=== PATIENT | male | born 1995 | race Asian ===

== ENCOUNTER 2024-12-08 14:36 | Outpatient (AMB) | payer OTHER, SELFPAY ==
--- NOTE | 2024-12-08 15:10 | PD.RESCLINIC ---
Allergies/Meds Allergies & Medications Allergies No Known Allergies Allergy (Verified 12/08/24 15:13) Confirmation of home meds: Pt. unable to confirm MA Intake Visit Data Collection New Patient or Established: New Patient (never been to [facility]) Seen by Clinical Staff ONLY (RN/JUAN): No Pain Present Currently: No Pain scale:: 0 Pain Scale Used: [employer] Required: No PCP or OBGYN visit in last 3 months: No Hx Now: No Do You Feel Safe at Home: Yes Authorities Contacted: N/A Smoking Status Smoking Status: Never smoker For Televisit only Telemed Video/Phone Visit: Yes Verbal consent obtained for Telemed visit?: Yes Verbal Consent witness name: ANNA BARGER Telemed Video/Phone visit w/Clinical Staff: 21-30 min Immunization / Flu Flu Vaccine in the Last 12 Months: No Flu Vaccine Exclusion Criteria: No Exclusion Criteria Past Medical History Family History FAMILY HISTORY: Positive Family Neurologic Problems (stroke in father) Social History SMOKING STATUS: Smoking status: Never smoker ALCOHOL: Alcohol Intake: Never HOUSING: Housing: House [facility] Social History Living Situation History Marital Status: Single Lives With: Friend(s) Housing: House Tobacco History Smoking Status: Never smoker Alcohol History Alcohol Intake: Never Substance Use History Substance Use: none Domestic Abuse History Do You Feel Safe at Home: Yes Review of Systems Report any current symptoms Only answer those that you have currently: Past Medical History Past Medical History Have you ever been diagnosed with any of the following: History of Present Illness HPI Narrative Had telehealth visit for routine annual health checkup. Patient does not have any significant complaints other than mild fatigue. Stated that he did not see a doctor in the last 5 years. Other than occasional mild fevers, patient did not have any significant illness in the last few years. Had family history of stroke in his father at the age of 45 and rheumatoid arthritis in his aunt. Review of Systems Review of Systems Narrative Review of Systems: Constitutional: No Weight Change, No Fever, No Chills, No Night Sweats, Mild Fatigue, Malaise ENT/Mouth: No Hearing Changes, No Ear Pain, No Nasal Congestion, No Sinus Pain, No Hoarseness, No sore throat, No Rhinorrhea, No Swallowing Difficulty Eyes: No Eye Pain, No Swelling, No Redness, No Foreign Body, No Discharge, No Vision Changes Cardiovascular: No Chest Pain, No SOB, No PND, No Dyspnea on Exertion, No Orthopnea, No Edema, No Palpitations Respiratory: No Cough, No Sputum, No Wheezing, No Dyspnea Gastrointestinal: No Nausea, No Vomiting, No Diarrhea, No Constipation, No Pain, No Heartburn, No Anorexia, No Dysphagia, No Hematochezia, No Melena, No Flatulence, No Jaundice Genitourinary: No Dysuria, No Urinary Frequency, No Hematuria, No Urinary Incontinence, No Urgency, No Flank Pain, No Urinary Flow Changes, No Hesitancy Musculoskeletal: No Arthralgias, No Myalgias, No Joint Swelling, No Joint Stiffness, No Back Pain, No Neck Pain, No Injury History Skin: No Skin Lesions, No Pruritis Neuro: No Weakness, No Numbness, No Paresthesias, No Loss of Consciousness, No Syncope, No Dizziness, No Headache, No Coordination Changes, No Recent Falls Assessment & Plan Diagnosis / Problem List (1) Fatigue: (2) Annual physical exam: Status: Acute Assessment & Plan: Per patient, did not have any health visit in the last 5 years Complaint of occasional mild fatigue, other than that no complaints Plan: -Recommended regular physical exercise -Ordered labs including CBC, CMP, lipid panel, vitamin B12, vitamin D, HbA1c, iron panel, ferritin, testosterone Orders: Orders CBC 12/08/24 Vitamin D 25 Hydroxy Total 12/08/24 Lipid Panel 12/08/24 Vitamin B12 12/08/24 Urinalysis, C/S if Indicated 12/08/24 Ambulatory Hemoglobin A1C 12/08/24 Comprehensive Metabolic Panel 12/08/24 Thyroid Stimulating Hormone 12/08/24 Iron Panel 12/08/24 Ferritin 12/08/24 Testosterone,Tot (Adult Male)* 12/08/24 Additional Assessment Internal Medicine Attending Note: Case discussed with and agree with note and management plan of Resident Physician as per Resident's Note above. Issues of concern for present visit are as follows: Initial visit completed via telehealth. No significant past medical history. Notes some mild fatigue. Family history of CVA in father age 45, aunt with rheumatoid arthritis. Unable to complete physical exam as telehealth visit. We will order baseline labs. Mao Randolph MD Physician Billing New Patient New Patient: E/M Level 2-CPT 93896 Office Procedures [facility] Level of Care Nursing/Assessment Patient Status: Initial/New Patient Nursing Assessment/Reassessment: Medication Reconciliation and Update PMH in EMR Coordination of Care: Complex Care and Chronic Disease 1-5, Consent,records obtained, informed consent, Education Simp Pt/Fam, Lab and Imaging orders and Staff clarify orders New Patient Charge New Patient Point Assignment: 1084 Telehealth Telemed Phone/Video with patient at home & Dr,PA,JOURNEYMAN GLAZIER: Yes
== END 2024-12-08 15:12 | disposition home or self-care (01) ==
LOC: HODAHC 14:36
PROVIDERS: Supervising Provider Internal Medicine
DX: R53.83 Other fatigue (principal); Z82.3 Family history of stroke; Z82.61 Family history of arthritis
CPT/HCPCS: 99203; 99212; G0463

== ENCOUNTER → 2024-12-13 | Outpatient (CLI) | payer OTHER, SELFPAY ==
[2024-12-13 09:10] LABS: Collection Type, Urine Clean Catch
[2024-12-13 09:31] LABS: Basophils % (Auto) 0 % (0-2.5); Eosinophils # (Auto) 0.3 Thou/mm3 (0.0-0.5); Eosinophils % (Auto) 3 % (0-10); Hematocrit 46.2 % (41.0-53.0); Hemoglobin 15.5 g/dL (13.5-16.0); Immature Granulocytes % (Auto) 1 % (0-0); Immature Granulocytes Auto 0.05 Thou/mm3 (0.00-0.00); Lymphocytes # (Auto) 1.1 Thou/mm3 (1.0-4.8); Lymphocytes % (Auto) 11 % (10-50); Mean Corpuscular HGB Conc 33.5 g/dl (31.0-37.0); Mean Corpuscular Hemoglobin 28.4 pg (25.0-35.0); Mean Corpuscular Volume 85 fL (80-100); Monocytes # (Auto) 0.6 Thou/mm3 (0.0-0.8); Monocytes % (Auto) 6 % (0-12); Neutrophils # (Auto) 8.3 Thou/mm3 (1.8-7.7); Neutrophils % (Auto) 80 % (37-80); Nucleated Red Blood Cell % 0 /100 WBC (0); Platelet Count 290 Thou/mm3 (140-440); RDW Standard Deviation 38.2 fL (35.1-43.9); Red Blood Count 5.46 Miln/mm3 (4.50-5.90); White Blood Count 10.4 Thou/mm3 (3.8-10.6)
[2024-12-13 09:44] LABS: Glucose Estimated Average 100 mg/dL (80-131); Hemoglobin A1C 5.1 % Hgb (4.8-6.0)
[2024-12-13 09:56] LABS: Alanine Aminotransferase 35 U/L (10-49); Albumin, Serum 4.7 gm/dL (3.5-5.0); Albumin/Globulin Ratio 1.5 (1.2-2.2); Alkaline Phosphatase 70 U/L (46-116); Anion Gap 6 (7-16); Aspartate Amino Transferase 33 U/L (0-34); BUN/Creatinine Ratio 12 Ratio (12-20); Bilirubin,Total 0.9 mg/dL (0.3-1.2); Blood Urea Nitrogen 15 mg/dL (9-23); Calcium 10.1 mg/dL (8.3-10.6); Calcium (Corrected) 10.1 mg/dL (8.5-10.1); Carbon Dioxide 29.6 mMol/L (20.0-31.0); Cardiac Risk Estimate 5.1 RATIO (4.0-6.7); Chloride 101 mMol/L (98-107); Cholesterol 183 mg/dL (132-200); Creatinine (Component) 1.3 mg/dL (0.6-1.3); Globulin 3.1 gm/dL (2.3-3.5); Glucose 97 mg/dL (74-106); HDL Cholesterol 36 mg/dL (40-60); LDL Cholesterol,Calculated 88 mg/dL (0-130); Osmolality,Calculated 274 (275-295); Potassium 4.5 mMol/L (3.4-5.1); Sodium 137 mMol/L (136-145); Thyroid Stimulating Hormone 1.39 uIU/mL (0.55-4.78); Total Protein 7.8 gm/dL (5.7-8.2); Triglycerides 296 mg/dL (30-150); eGFR > 60 See Note
[2024-12-13 09:59] LABS: Vitamin B12 426 pg/mL (211-911); Vitamin D 25 Hydroxy Total 17.5 ng/mL (7.3-40.2)
[2024-12-13 10:04] LABS: Ferritin 58 ng/mL (10.5-307.3); Iron 149 mcg/dL (65-175); Percent Iron Saturation 40 % (20-55); Total Iron Binding Capacity 369 mcg/dL (250-425); Unsaturated Iron Binding 220 (225-295)
[2024-12-13 10:05] LABS: Bilirubin,Urine Negative (Negative); Blood,Urine Negative (Negative); Clarity,Urine Clear (Clear/Hazy); Color,Urine Yellow (Lt Yel-Yel); Culture Indicated,Urine Not Indicated; Glucose, Urine Negative (Negative); Ketones,Urine Negative (Negative); Leukocyte Esterase,Urine Negative (Negative); Nitrite,Urine Negative (Negative); PH,Urine 6.5 (5.0-7.0); Protein,Urine 1+ (Neg - Trace); RBC,Urine 3 /hpf (0-3); Specific Gravity,Urine 1.035 (1.001-1.035); Squamous Epithelial Cell,Urine 1 /hpf (0-5); Urobilinogen,Urine Negative mg/dL (0.0-1.0); WBC,Urine 1 /hpf (0-5)
[2024-12-18 07:04] LABS: Testosterone,Tot (Adult Male)* 258 ng/dL (250-827)
== END | disposition home or self-care (01) ==
DX: Z01.89 Encounter for other specified special examinations (principal)
CPT/HCPCS: 36415; 80053; 80061; 81001; 82306; 82607; 82728; 83036; 83540; 83550; 84403; 84443; 85025